=== PATIENT | female | born 1985 | race Caucasian/White ===

== ENCOUNTER 2020-10-21 11:27 | Emergency (ER) | payer SELFPAY ==
[~2020-10-21] VITALS: Ht 172.7 cm; Wt 81.6 kg
[2020-10-21] MEDS ORDERED: ONDANSETRON HCL/PF 4 MG/2 ML VIAL ONE (11:47)
[2020-10-21 11:58] LABS: BASOPHILS # (AUTO) 0.1 K/uL (0.0-0.2); BASOPHILS % (AUTO) 0.7 % (0.0-2.0); EOSINOPHILS % (AUTO) 0.4 % (0.0-6.0); HEMATOCRIT 38 % (33-45); HEMOGLOBIN 12.9 g/dL (11.5-14.8); LYMPHOCYTES # (AUTO) 1.7 K/uL (0.8-4.8); LYMPHOCYTES % (AUTO) 17.1 % (20.0-44.0); MEAN CORPUSCULAR HGB CONC 34 g/dl (31.0-36.0); MEAN CORPUSCULAR VOLUME 87 fL (82-100); NEUTROPHILS % (AUTO) 71.8 % (43.0-81.0); PLATELET COUNT (AUTO) 197 K/uL (150-450); RED BLOOD CELL COUNT(AUTO) 4.38 MIL/uL (4.0-5.2); WHITE BLOOD COUNT (AUTO) 9.8 K/uL (4.3-11.0)
[2020-10-21] MEDS ORDERED: IV NS 0.9% 1,000 ML BAG IV ONE (12:00)
[2020-10-21] MEDS ORDERED: ONDANSETRON HCL/PF 4 MG/2 ML VIAL IVP ONE (12:00)
--- NOTE | 2020-10-21 12:08 | NUR ---
UNABLE TO TOLERATE FLUID/FOOD. L SIDE FLANK PAIN STARTED LAST NIGHT. PT AAOX4, VSS. RR EVEN & UNLABORED. DENIES CP, SOB, DIZZINESS, DIARRHEA AT THIS TIME. PT SEEN & EVAL'D BY DR. MENDOSA. MEDICATED ORDERED, PT SANDRA WELL. WILL CONT TO MONITOR.
[2020-10-21 12:14] LABS: CALCIUM, SERUM 8.6 mg/dL (8.5-10.1); CREATININE 0.7 mg/dL (0.6-1.3); POTASSIUM 3.5 mmol/L (3.5-5.1)
[2020-10-21 12:20] LABS: ALBUMIN 3.2 g/dL (3.4-5.0); BILIRUBIN,DIRECT 0.1 mg/dL (0.0-0.2); BILIRUBIN,TOTAL 0.5 mg/dL (0.2-1.0); TOTAL PROTEIN, SERUM 6.7 g/dL (6.4-8.2)
[2020-10-21] MEDS ORDERED: KETOROLAC TROMETHAMINE 15 MG/ML VIAL ONE (12:48)
[2020-10-21] MEDS ORDERED: KETOROLAC TROMETHAMINE INJ 30 MG/ML VIAL IV ONE (13:00)
[2020-10-21 13:28] LABS: BILIRUBIN,URINE NEGATIVE (NEGATIVE); COLOR,URINE YELLOW (YELLOW); LEUKOCYTE ESTERASE ,URINE MODERATE (NEGATIVE); NITRITE, URINE NEGATIVE (NEGATIVE); PROTEIN,URINE 30 mg/dl (NEGATIVE); UGLUCOSE NEGATIVE (NEGATIVE); UROBILINOGEN,URINE 0.2 EU/dL (0.2)
[2020-10-21 13:41] LABS: BACTERIA,URINE Moderate /HPF (None Seen); WBC,URINE 81-100 /HPF (0-3)
[2020-10-21 13:42] LABS: SQUAMOUS EPITHELIAL CELL,UR Few /HPF (None Seen)
[2020-10-21] MEDS ORDERED: CEFTRIAXONE 1GM BAG (ER ONLY) 1 GM/50 ML PIGGYBACK IV ONE (14:00)
[2020-10-21] MEDS ORDERED: CIPR-262 PO (14:01)
[2020-10-21] MEDS ORDERED: CEFTRIAXONE 1GM BAG (ER ONLY) 50 ML IV ONE (14:06)
--- NOTE | 2020-10-21 15:21 | NUR ---
Patient discharged to home in stable condition. Written and verbal after care instructions given. Patient verbalizes understanding of instruction. IV removed. Catheter intact and site benign. Pressure and 4x4 applied to site. No bleeding noted.
[2020-10-21 15:22] VITALS: BP 124/84
== END 2020-10-21 15:23 | disposition home or self-care (01) ==
LOC: ER 11:35
DX: N12 Tubulo-interstitial nephritis, not specified as acute or chronic (principal); R11.2 Nausea with vomiting, unspecified; Z88.1 Allergy status to other antibiotic agents
CPT/HCPCS: 36415; 80048; 80076; 81001; 83690; 84702; 85025; 87077; 87086; 87186; 96361; 96365; 96375; 99284; J0696; J1885; J2405; J7030